=== PATIENT | female | born 1935 | race Caucasian/White ===

== ENCOUNTER 2019-12-05 00:35 | Outpatient (NON) | payer MEDICARE, SELFPAY ==
[2019-12-05 17:48] LABS: SARS-CoV-2 RNA PCR Negative
== END 2019-12-05 00:36 ==
PROVIDERS: PCP Family Medicine; Visit Provider Family Medicine
DX: B34.9 Viral infection, unspecified (principal); Z20.828 Contact with and (suspected) exposure to other viral communicable diseases
CPT/HCPCS: 87635; C9803; U0003

== ENCOUNTER 2020-02-16 13:33 | Outpatient (CLI) | payer MEDICARE, MEDICAID, SELFPAY ==
--- NOTE | 2020-02-16 13:52 | ECHO_ITS ---
Patient Info Name: Muna Ceron Age: 84 years : 1935 Gender: Female Ht: 67 in Wt: 145 lbs BSA: 1.77 m2 HR: 64 bpm BP: 173 / 84 mmHg Heart Rhythm: Sinus Rhythm Technical Quality: Good Exam Date: 02/16/2020 2:13 PM Exam Location: [facility] Patient Status: Outpatient Admit Date: 02/16/2020 Staff Ordering Physician: Yesika Avila PA-C Grade Tamper: Melonie Campos RDCS Attending Provider: Yesika Avila PA-C Referring Physician: Austin FLORES; Exam Type: CA echo doppler color flow Study Info Indications - cardiac murmur Complete two-dimensional, color flow and Doppler transthoracic echocardiogram is performed. Summary 1. Left ventricular systolic function is normal, estimated at 60-65%. 2. Left ventricular chamber dimension is normal. 3. There is moderate aortic valve stenosis with a peak velocity of 349 cm/s, mean gradient of 29 mmHg, and aortic valve area of 1.2 cm2. 4. There is trace aortic valve regurgitation. Left Ventricle Left ventricular chamber dimension is normal. Left ventricular systolic function is normal, estimated at 60-65%. The left ventricular diastolic function is normal. Right Ventricle Right ventricular chamber dimension is normal. Left Atria Left atrial chamber dimension is normal. Right Atria Right atrial chamber dimension is normal. Aortic Valve The aortic valve is trileaflet. There is moderate aortic valve stenosis with a peak velocity of 349 cm/s, mean gradient of 29 mmHg, and aortic valve area of 1.2 cm2. There is trace aortic valve regurgitation. Pulmonic Valve The pulmonic valve is not well visualized. Mitral Valve The mitral valve has normal leaflets. The mitral valve annulus is mildly calcified. Tricuspid Valve The tricuspid valve leaflets are normal. Pericardium/Pleural The pericardium appears normal. Aorta The aortic root size at the sinus of Valsalva is normal. Left Ventricular Outflow Tract Name Value Normal LVOT 2D LVOT Diameter 2.0 cm LVOT Doppler LVOT Peak Gradient 6 mmHg LVOT Mean Gradient 3 mmHg LVOT VTI 32 cm LVOT VTI/AV VTI Ratio 0.4 LVOT Stroke Volume 102 ml LVOT CO 16.8 l/min LVOT CI 9.5 l/min/m2 Pulmonic Valve Name Value Normal PV Doppler PV Peak Gradient 3 mmHg Mitral Valve Name Value Normal MV Doppler MV Decel [place] 290 cm/s2 MV PHT
== END 2020-02-16 13:34 | disposition home or self-care (01) ==
PROVIDERS: PCP Family Medicine; Visit Provider Physician Assistant
DX: R01.1 Cardiac murmur, unspecified (principal)
CPT/HCPCS: 93306

== ENCOUNTER 2020-02-17 07:14 | Inpatient (IN) | payer MEDICARE, MEDICAID, SELFPAY ==
[2020-02-17] VITALS (8 sets, daily range): BP systolic 145–188; BP diastolic 65–105; PULSE 93–103; RESP 16–24; TEMP 36.6–37.8; O2SAT 96–99
--- NOTE | ~2020-02-17 | CT_ITS ---
EXAMINATION: CT brain wo con EXAM DATE: 02/17/2020 07:22 INDICATION: Slurred speech TECHNIQUE: Spiral CT of the head was performed without contrast. Axial, coronal and sagittal images were reviewed. The dose-length product (DLP) for this examination was 605.33 mGy-cm. The exposure w as tailored according to patient size, and iterative reconstruction (ASIR) was used as additional dos e reduction technique. There is no prior study for comparison. FINDINGS: There is a large right frontal lobe intraparenchymal hematoma, measuring about 5 cm. There is small amount of intraventricular extension with tiny amount of hematocrit in both lateral ventricu lar occipital horns, the dependent aspects. There is about 7 mm of leftward midline shift of the late ral ventricle. No obstructive hydrocephalus at present. Probable small overlying subdural hematoma. T here is small amount of subarachnoid hemorrhage overlying this region more cephalad. Mild microangiopathy and cerebral atrophy. Bilateral cataract surgery. No calvarial fracture. IMPRESSION: 1. Large right frontal intraparenchymal hemorrhage with intraventricular and subarachnoid extension. 2. Small right frontal subdural hematoma. I discussed large amount of intracranial hemorrhage with Jazmin Vásquez MD at 02/17/2020 07:25 CDT. Reviewed, dictated and finalized at location A. IMPRESSION: 1. Large right frontal intraparenchymal hemorrhage with intraventricular and s ubarachnoid extension. 2. Small right frontal subdural hematoma. I discussed large amount of intracranial hemorrhage with Jazmin Vásquez MD at 07:25 CDT.
--- NOTE | ~2020-02-17 | XR_ITS ---
EXAMINATION: XR chest 1V portable DATE: 02/17/2020 08:06 INDICATION: Stroke. Slurred speech. TECHNIQUE: A single frontal view of the chest was obtained. COMPARISON: None. FINDINGS: A calcified left lung nodule and calcified left hilar and mediastinal lymph nodes are consi stent with old granulomatous disease. There is a diffuse interstitial pattern in the lungs, consisten t with mild pulmonary edema. No pleural effusion or pneumothorax. The heart size is normal. IMPRESSION: 1. Mild pulmonary edema. Reviewed, dictated and finalized at location B. IMPRESSION: 1. Mild pulmonary edema.
--- NOTE | 2020-02-17 07:17 | ECG_ITS ---
Measurements Intervals Hydro Rate: 102 P: 64 DC: 189 QRS: 11 QRSD: 89 T: 78 QT: 335 QTc: 436 Interpretive Statements SINUS TACHYCARDIA NONSPECIFIC ST & T-WAVE ABNORMALITY- INF/LAT LEADS BASELINE ARTIFACT- I, II, III, AVR, AVL ,AVF, V1, V3-V6 BORDERLINE ECG Electronically Signed On 02-17-2020 7:35:12 CDT by Lewis Fregoso D.O.
--- NOTE | 2020-02-17 07:28 | ED.NEUROSD ---
HPI - Neuro Symptoms/Deficit General Chief Complaint: Suspected CVA Stated Complaint: ?CVA Time Seen by Provider: 02/17/20 07:22 Source: EMS Mode of arrival: EMS Limitations: clinical condition History of Present Illness HPI Narrative: 84 years old white female longterm, found sitting on the couch this morning unresponsive, patient is still having the same clothse she was wearing last night./Not in her pajamas. Patient on aspirin. Patient is DNR. Related Data Home Medications Medication Instructions Recorded Confirmed albuterol sulfate 90 mcg/actuation 1 inhalation INHALATION Q4H 11/10/19 01/21/20 aerosol inhaler calcium carbonate-vitamin D3 600 1 tablet PO BID tablet 11/10/19 01/21/20 mg(1,500 mg)-400 unit chewable tablet diclofenac sodium 1 % topical gel 4 gm TOPICAL QID PRN 11/10/19 01/21/20 diltiazem HCl 120 mg 120 mg PO DAILY 11/10/19 01/21/20 capsule,extended release 24 hr febuxostat 80 mg tablet 80 mg PO DAILY 11/10/19 01/21/20 gabapentin 100 mg capsule 100 mg PO DAILY 11/10/19 01/21/20 lovastatin 40 mg tablet 40 mg PO QPM 11/10/19 01/21/20 mecobalamin (vitamin B12) 1,000 1,000 mcg SUBLINGUAL DAILY 11/10/19 01/21/20 mcg disintegrating tablet,sublingual metoprolol tartrate 50 mg tablet 50 mg PO BID tablet 11/10/19 01/21/20 omeprazole 40 mg capsule,delayed 40 mg PO .Q a.m. cap 11/10/19 01/21/20 release losartan 100 mg tablet 50 mg PO DAILY tablet 01/21/20 01/21/20 Allergies Allergy/AdvReac Type Severity Reaction Status Date / Time aspirin Allergy Unknown unknown Verified 02/10/20 10:15 cephalexin [From Keflex] Allergy Unknown Hives Verified 02/10/20 10:15 codeine Allergy Unknown Hives Verified 02/10/20 10:15 duloxetine Allergy Unknown Hives Verified 02/10/20 10:15 hydralazine Allergy Unknown Palpitation Verified 02/10/20 10:15 s ibuprofen Allergy Unknown Hives Verified 02/10/20 10:15 levofloxacin [From Levaquin] Allergy Unknown Nasuea Verified 02/10/20 10:15 sulfamethoxazole Allergy Unknown Hives Verified 02/10/20 10:15 [From Bactrim] trimethoprim [From Bactrim] Allergy Unknown Hives Verified 02/10/20 10:15 Review of Systems Review of Systems: ROS unobtainable: Yes unobtainable due to medical condition PMFSH Past Medical History Medical History CKD (chronic kidney disease) Diabetes mellitus Nontoxic multinodular goiter Noted on ultrasound dated 12/19/17 Pharyngeal dysphagia Polymyalgia rheumatica Surgical History Surgical History Cataract extraction status (12/23/17) and 08/23/17 Hx of cholecystectomy noted on abdominal ultrasound dated 11/12/18 Knee joint replacement status (08/02/16) Family History Family History Father Cerebrovascular accident Malignant neoplasm of prostate Heart disease Mother Heart disease Diabetes mellitus Sibling Cerebrovascular accident Sibling Cerebrovascular accident Heart attack Social History Social History Smoking status: Former smoker Smoking end date: 06/25/84 Alcohol intake: never Substance use: never Exam Narrative: Exam Narrative: General appearance: Well-developed, well-nourished Skin: Normal color Head: Normocephalic, nontraumatic Eyes: Clear conjunctiva ENT: Oropharynx normal, ears normal, nose normal Neck: Supple, nontender Chest and respiratory: Airway patent, no respiratory distress, no accessory muscle use Heart: Regular rate/rhythm Abdomen: Soft, nontender, no organomegaly, quiet bowel sounds Vascular: Normal peripheral pulses, normal capillary refill. Musculoskeletal: Flaccid Neurologic: Unresponsive, right gaze, decorticate posturing
[2020-02-17 07:37] LABS: Glucose Point of Care 188 (65-105)
[2020-02-17 07:48] LABS: Basophils Absolute Auto 0.1 K/mm3 (0.0-0.1); Basophils Percent Auto 0.5 % (0.2-1.2); Eosinophils Percent Auto 0.1 % (0-4.4); Hematocrit 36.2 % (37.0-47.0); Hemoglobin 11.6 g/dL (12.0-15.0); Immature Granulocyte Absolute 0.09 K/mm3 (0.00-0.031); Immature Granulocyte Percent A 0.6 % (0-0.5); Lymphocytes Absolute Auto 1.57 K/mm3 (0.9-3.2); Lymphocytes Percent Auto 10.7 % (18.3-44.2); Mean Corpuscular Hemoglobin 28.9 pg (26-34); Mean Corpuscular Volume 90.3 fl (80-100); Mean Platelet Volume 10.2 fl (7.4-10.4); Monocytes Absolute Auto 0.8 K/mm3 (0.1-0.6); Monocytes Percent Auto 5.5 % (2.6-8.5); Neutrophils Absolute Auto 12.1 K/mm3 (1.3-6.7); Neutrophils Percent Auto 82.6 % (45.5-73.1); Platelet Count Result 334 k/mm3 (150-375); Red Blood Count 4.01 M/mm3 (4.2-5.4); White Blood Count 14.7 K/mm3 (4.5-10.0)
[2020-02-17 07:56] LABS: INR 1.1; Prothrombin Time 13.7 Seconds (11.1-14.7)
[2020-02-17 07:57] LABS: Partial Thromboplastin Time 25.3 SECONDS (22.3-36.8)
[2020-02-17 07:59] LABS: Anion Gap 12 mmol/L (8-16); Blood Urea Nitrogen 41 mg/dL (7-17); Calcium 10.8 mg/dL (8.4-10.2); Carbon Dioxide 18 mmol/L (22-30); Chloride 110 mmol/L (98-107); Estimated Glomerular Filt Rate 23; Glucose 204 mg/dL (65-105); Potassium 5.6 mmol/L (3.4-5.0); Sodium 140 mmol/L (137-145)
[2020-02-17 08:10] LABS: Troponin I < 0.012 ng/mL (0.000-0.034)
--- NOTE | 2020-02-17 09:36 | ADMGEN ---
This patient, Muna Ceron, was admitted to Medical Room 243-. Patient/family oriented to hospital policies and general routines including ID bracelet, bed and alarms, visiting hours, pain management, procedures, bathroom and other care routines, personal items, smoking policy, room service/diet, and visiting hours. Valuables list has been completed. Information on how to activate the Rapid Response Team has been discussed. Patient/Family are encouraged to report perceived risks to care and to ask questions if they do not understand what they are told or what they should do.
[2020-02-17] MEDS: MORPHINE SULFATE 2 MG/ML INJ 1 MG IV PUSH ×4 (14:20→23:20)
--- NOTE | 2020-02-17 16:49 | PM.IMHP ---
H&P: HPI History of Present Illness Date/Time: 02/17/20 16:50 Chief complaint: intracranial bleed,comfort measures status Narrative: Date of visit 02/16. 1230. Muna Ceron is a 84 year old female with hypertension who was found by the staff at her assisting living facility today unresponsive her and after transferred urine with found to a rather large right frontal intra cerebral bleed. neurosurgery [facility] contacted [facility] and they reported they any intervention would probably have the same outcome and suggested comfort measures. Patient is a DNR and her POA decided to admit for comfort measures only Review of Systems Review of Systems: Narrative: due to level of consciousness review of systems unobtainable P way does relate though the at her mental status has been worsening over the last few months becoming very forgetful, somewhat paranoid, and mood changes all compatible with dementia PMFSH Past Medical History Medical History CKD (chronic kidney disease) Diabetes mellitus Nontoxic multinodular goiter Noted on ultrasound dated 12/19/17 Pharyngeal dysphagia Polymyalgia rheumatica Surgical History Surgical History Cataract extraction status (12/23/17) and 08/23/17 Hx of cholecystectomy noted on abdominal ultrasound dated 11/12/18 Knee joint replacement status (08/02/16) Family History Family History Father Cerebrovascular accident Malignant neoplasm of prostate Heart disease Mother Heart disease Diabetes mellitus Sibling Cerebrovascular accident Sibling Cerebrovascular accident Heart attack Social History Social History (Updated 02/17/20 @ 16:59 by Kenan Guzman MD) Social History: has been living at [facility]. Smoking status: Former smoker Smoking end date: 06/25/84 Alcohol intake: never Substance use: never Gender identity (if verbalized by the patient): Female Spiritual care concerns: No Meds Home Medications and Allergies Home Medications Medication Instructions Recorded Confirmed Type calcium carbonate-vitamin D3 600 1 tablet PO BID tablet 11/10/19 02/17/20 History mg(1,500 mg)-400 unit chewable tablet diclofenac sodium 1 % topical gel 4 gm TOPICAL QID 11/10/19 02/17/20 History diltiazem HCl 120 mg 120 mg PO DAILY 11/10/19 02/17/20 History capsule,extended release 24 hr febuxostat 80 mg tablet 80 mg PO DAILY 11/10/19 02/17/20 History gabapentin 100 mg capsule 100 mg PO DAILY 11/10/19 02/17/20 History lovastatin 40 mg tablet 40 mg PO QPM 11/10/19 02/17/20 History mecobalamin (vitamin B12) 1,000 1,000 mcg SUBLINGUAL DAILY 11/10/19 02/17/20 History mcg disintegrating tablet,sublingual metoprolol tartrate 50 mg tablet 50 mg PO BID tablet 11/10/19 02/17/20 History omeprazole 40 mg capsule,delayed 40 mg PO QAM cap 11/10/19 02/17/20 History release carboxymethylcellulose sodium 1 drop EACH EYE QID PRN #12 ml 12/25/19 02/17/20 Rx losartan 100 mg tablet 50 mg PO DAILY tablet 01/21/20 02/17/20 History mupirocin 2 % topical ointment 1 applic TOPICAL BID #15 gm 02/10/20 02/17/20 Rx Allergies Allergy/AdvReac Type Severity Reaction Status Date / Time aspirin Allergy Unknown unknown Verified 02/17/20 08:14 cephalexin [From Keflex] Allergy Unknown Hives Verified 02/17/20 08:14 codeine Allergy Unknown Hives Verified 02/17/20 08:14 duloxetine Allergy Unknown Hives Verified 02/17/20 08:14 hydralazine Allergy Unknown Palpitation Verified 02/17/20 08:14 s ibuprofen Allergy Unknown Hives Verified 02/17/20 08:14 levofloxacin [From Levaquin] Allergy Unknown Nasuea Verified 02/17/20 08:14 sulfamethoxazole Allergy Unknown Hives Verified 02/17/20 08:14 [From Bactrim] trimethoprim [From Bactrim] Allergy Unknown Hives Verified 02/17/20 08:14 Vit
[2020-02-18] MEDS: ATROPINE SULFATE 1% OPHTH SOLN 5 ML BOTTLE 1 DROP SUBLINGUAL ×2 (00:03→03:35)
[2020-02-18] MEDS: MORPHINE SULFATE 2 MG/ML INJ 1 MG IV PUSH ×2 (00:09→03:29)
[2020-02-18 06:00] VITALS: BP 120/54; PULSE 64; RESP 16; TEMP 36.1; O2SAT 96
--- NOTE | 2020-02-18 12:54 | PM.IMPN ---
Progress Note: A&P Assessment and Plan (1) Intracranial bleed: Code(s): I62.9 - Nontraumatic intracranial hemorrhage, unspecified Status: Acute Assessment and Plan: fairly large bleed with no definite midline shift at this point. POA elected for comfort care and we agree this is the best course of treatment symptomatic with benzo diazepam and pain medication as needed transition to morphine drip today since is requiring frequent IV injection (2) Chronic kidney disease: Qualifiers: Chronic kidney disease stage: unspecified stage Qualified Code(s): N18.9 - Chronic kidney disease, unspecified Code(s): N18.9 - Chronic kidney disease, unspecified Status: Acute Assessment and Plan: creatinine 2.1 on admission assume probably close to her baseline (3) Type 2 diabetes, controlled, with neuropathy: Code(s): E11.40 - Type 2 diabetes mellitus with diabetic neuropathy, unspecified Status: Acute Assessment and Plan: blood sugar 134 on admission and not recheck with comfort hospice care (4) Hypertension: Qualifiers: Hypertension type: essential hypertension Qualified Code(s): I10 - Essential (primary) hypertension Code(s): I10 - Essential (primary) hypertension Status: Acute Assessment and Plan: pressure not significantly elevated and will not attempt to control given her comfort measure Subjective Date/time seen: 02/18/20 12:54 Interval history: Date of visit 02/17. 84-year-old hypertensive white female found in her apartment assisted living early a.m. the . Transferred to [place] [facility] and CT scan revealed rhythm large right frontal parietal bleed. Last known normal is unknown and after contacting neuro surgery at [facility] family decided on comfort care. Exam Narrative: Exam Narrative: blood pressure 120/54 pulse is 64 regular respirations 20 per minute on labored afebrile saturating above 96% on room air pupils are small and barely reactive with eyes Home only slightlydeviated to the right today neck is supple no adenopathy thyromegaly air no carotid bruits CV regular rate rhythm no murmurs abdomen is soft nontender no masses extremities without edema dorsalis pedis posterior tibial 1+ neuro not responding to any verbal stimuli does not move left arm or leg although does right-side but not purposeful. flexor responses are upgoing bilaterally Objective Data Vital Signs Vital Signs: Vital Signs - 24 hr 02/17/20 14:02/17/20 22:00 02/18/20 06:00 Temperature 37.7 C H 37.6 C H 36.1 C L Pulse Rate 93 64 Respiratory Rate 16 16 Blood Pressure 145/74 H 120/54 L Pulse Oximetry 96 96 Intake/Output Intake/Output: Intake & Output 02/15/20 02/16/20 02/17/20 02/18/20 23:59 23:59 23:59 23:59 Intake Total 100 Balance 100 Meds/Results Medications: Active Medications Generic Name Dose Route Start Last Admin Trade Name Freq PRN Reason Stop Dose Admin Atropine Sulfate 1 drop 02/17/20 23:25 02/18/20 03:35 Atropine Sulfate 1% Ophth Hazel SUBLINGUAL 1 drop Q4H PRN Administration Secretions Morphine Sulfate 50 mg/ Sodium 100 mls @ 2 mls/hr 02/18/20 10:55 02/18/20 11:29 Chloride IV CONT 1 mg/hr .Q24H TESS 2 mls/hr Administration 1 MG/HR Lorazepam 0.5 mg 02/17/20 10:11 02/18/20 12:00 Ativan Inj IV PUSH 0.5 mg Q4H PRN Administration Restless Ondansetron HCl 4 mg 02/17/20 14:09 Zofran Inj IV PUSH Q6H PRN Nausea And Vomiting Radiology Results: ITS Impressions Head CT 02/17/20 07:23 IMPRESSION: 1. Large right frontal intraparenchymal hemorrhage with intraventricular and subarachnoid extension. 2. Small right frontal subdural hematoma. I discussed large amount of intracranial hemorrhage with Jazmin Vásquez MD at 02/17/2020 07:25 CDT. Chest X-Ray 02/17/20 08:07 IMPRESSION: 1. Mild pulmonary edema.
[2020-02-18 21:57] VITALS: BP 146/66; PULSE 102; RESP 16; TEMP 37.8; O2SAT 97
[2020-02-19] MEDS: ATROPINE SULFATE 1% OPHTH SOLN 5 ML BOTTLE 1 DROP SUBLINGUAL ×3 (13:26→21:25)
[2020-02-19 14:00] VITALS: BP 138/69; PULSE 74; RESP 21; TEMP 37.3; O2SAT 87
--- NOTE | 2020-02-19 15:04 | PM.IMPN ---
Progress Note: A&P Assessment and Plan (1) Intracranial bleed: Code(s): I62.9 - Nontraumatic intracranial hemorrhage, unspecified Status: Acute Assessment and Plan: fairly large bleed with no definite midline shift at this point. POA elected for comfort care and we agree this is the best course of treatment symptomatic with benzo diazepam and pain medication as needed transition to morphine drip today since is requiring frequent IV injection (2) Chronic kidney disease: Qualifiers: Chronic kidney disease stage: unspecified stage Qualified Code(s): N18.9 - Chronic kidney disease, unspecified Code(s): N18.9 - Chronic kidney disease, unspecified Status: Acute Assessment and Plan: creatinine 2.1 on admission assume probably close to her baseline (3) Type 2 diabetes, controlled, with neuropathy: Code(s): E11.40 - Type 2 diabetes mellitus with diabetic neuropathy, unspecified Status: Acute Assessment and Plan: blood sugar 134 on admission and not recheck with comfort hospice care (4) Hypertension: Qualifiers: Hypertension type: essential hypertension Qualified Code(s): I10 - Essential (primary) hypertension Code(s): I10 - Essential (primary) hypertension Status: Acute Assessment and Plan: pressure not significantly elevated and will not attempt to control given her comfort measure Subjective Date/time seen: 02/19/20 15:04 Interval history: Date of visit 02/18. 84-year-old hypertensive white female found in her apartment assisted living early a.m. the . Transferred to [place] [facility] and CT scan revealed large right frontal parietal bleed. Last known normal is unknown and after contacting neuro surgery at [facility] family decided on comfort care. Exam Narrative: Exam Narrative: blood pressure 138/70 regular respirations 16 per minute on labored afebrile saturating above 96% on room air pupils are small and barely reactive with eyes only slightlydeviated to the right today neck is supple no adenopathy thyromegaly air no carotid bruits CV regular rate rhythm no murmurs abdomen is soft nontender no masses extremities without edema dorsalis pedis posterior tibial 1+ neuro not responding to any verbal stimuli does not move left leg although does left arm today and right-side but not purposeful. flexor responses are upgoing bilaterally Objective Data Vital Signs Vital Signs: Vital Signs - 24 hr 02/18/20 21:57 02/19/20 14:00 Temperature 37.8 C H 37.3 C Pulse Rate 102 H 74 Respiratory Rate 16 21 H Blood Pressure 146/66 H 138/69 Pulse Oximetry 97 87 L Intake/Output Intake/Output: Intake & Output 02/16/20 02/17/20 02/18/20 02/19/20 23:59 23:59 23:59 23:59 Intake Total 100 0 100 Balance 100 0 100 Meds/Results Medications: Active Medications Generic Name Dose Route Start Last Admin Trade Name Freq PRN Reason Stop Dose Admin Acetaminophen 650 mg 02/19/20 11:08 Tylenol Suppository RECTAL Q6H PRN Mild Pain (1-3) or Fever Atropine Sulfate 1 drop 02/17/20 23:25 02/19/20 13:26 Atropine Sulfate 1% Ophth Hazel SUBLINGUAL 1 drop Q4H PRN Administration Secretions Morphine Sulfate 50 mg/ Sodium 100 mls @ 4 mls/hr 02/18/20 10:55 02/19/20 13:42 Chloride IV CONT 2 mg/hr .Q24H TESS 4 mls/hr Infusion 2 MG/HR Lorazepam 0.5 mg 02/18/20 15:32 02/19/20 13:20 Ativan Inj IV PUSH 0.5 mg Q2H PRN Administration Restless Ondansetron HCl 4 mg 02/17/20 14:09 Zofran Inj IV PUSH Q6H PRN Nausea And Vomiting Radiology Results: ITS Impressions Head CT 02/17/20 07:23 IMPRESSION: 1. Large right frontal intraparenchymal hemorrhage with intraventricular and subarachnoid extension. 2. Small right frontal subdural hematoma. I discussed large amount of intracranial hemorrhage with Jazmin Vásquez MD at 02/17/2020 07:25 CDT.
[2020-02-19] MEDS: SCOPOLAMINE 1.5 MG PATCH TRANSDERM (18:09)
[2020-02-19 21:36] VITALS: BP 115/97; PULSE 125; RESP 16; TEMP 37.7; O2SAT 95
[2020-02-20] MEDS: ATROPINE SULFATE 1% OPHTH SOLN 5 ML BOTTLE 1 DROP SUBLINGUAL ×2 (02:49→06:16)
[2020-02-20 12:14] VITALS: TEMP 38.6
[2020-02-20] MEDS: ACETAMINOPHEN 650 MG SUPPOSITORY RECTAL (12:14)
--- NOTE | 2020-02-20 13:00 | PC.NURSE ---
Called to room by regina. Patient took a few last breaths and respirations ceased. No heartrate noted. Called Paola Charles RN to room and patient pronounced . Emotional support provided to niece. Straddle Truck Driverroderick Iqbal called to room per family request.
--- NOTE | 2020-02-20 15:00 | PC.NURSE ---
[place] [facility] [place].
--- NOTE | 2020-02-20 15:35 | PM.DDS ---
Discharge Sum: Prov Provider Primary care physician: Isabel Cervantes DO Admitting provider: Kenan Guzman MD Discharge Sum: Diag Contributing Factors (1) Intracranial bleed: (2) Chronic kidney disease: (3) Type 2 diabetes, controlled, with neuropathy: (4) Hypertension: Discharge Sum: Summary Date and Time Date of admission: 02/17/20 08:14 Summary Details: 84-year-old hypertensive admitted with altered status found to right frontal parietal bleed. [facility] Was contacted and last known normal was unknown. They suggested comfort measures because surgical intervention would probably not improve her outcome. POA did not want any aggressive treatment just comfort measures and patient early afternoon 02/19. she never fully regained consciousness Additional Data Attending physician: Kenan Guzman MD
== END 2020-02-20 13:05 | disposition expired | DRG 66 ==
LOC: ANHED 08:18 → ANH2MED 08:35
PROVIDERS: Admitting Provider Internal Medicine; Emergency Provider Emergency Medicine; PCP Family Medicine; Visit Provider Internal Medicine
DX: I62.9 Nontraumatic intracranial hemorrhage, unspecified (principal); E11.22 Type 2 diabetes mellitus with diabetic chronic kidney disease; I12.9 Hypertensive chronic kidney disease with stage 1 through stage 4 chronic kidney disease, or unspecified chronic kidney disease; N18.9 Chronic kidney disease, unspecified; E11.42 Type 2 diabetes mellitus with diabetic polyneuropathy; Z66 Do not resuscitate; M35.3 Polymyalgia rheumatica; E04.2 Nontoxic multinodular goiter; Z98.42 Cataract extraction status, left eye; Z98.41 Cataract extraction status, right eye; Z90.49 Acquired absence of other specified parts of digestive tract; Z87.891 Personal history of nicotine dependence; Z96.659 Presence of unspecified artificial knee joint
CPT/HCPCS: 36415; 70450; 71045; 80048; 82948; 84484; 85025; 85610; 85730; 93005; 93306; 99285; A9270; J0131; J2060; J2270